=== PATIENT | male | born 1960 | race Caucasian/White ===

== ENCOUNTER 2021-02-07 04:21 | Day surgery (SDC) | payer OTHER ==
[2021-02-03 17:19] VITALS: BMI 30.4
[2021-02-07] MEDS ORDERED: LIDOCAINE HCL/PF 2% SDV 5ML VIAL ONE (10:27)
[2021-02-07] MEDS ORDERED: PROPOFOL 20 ML ONE (10:27)
[2021-02-07] MEDS ORDERED: KETOROLAC TROMETHAMINE 30 MG/1 ML VIAL ONE (10:27)
[2021-02-07 15:28] VITALS: TEMP 97
[2021-02-07 15:40] VITALS: BP 120/70; PULSE 88
== END 2021-02-07 12:00 | disposition home or self-care (01) ==
LOC: JASU-SURG 04:21
PROVIDERS: ATTEND Urology
PROC: 0TF3XZZ Fragmentation in Right Kidney Pelvis, External Approach (ICD-10-PCS; principal; 2021-02-07 09:00)
DX: N20.0 Calculus of kidney (principal); I10 Essential (primary) hypertension; E11.9 Type 2 diabetes mellitus without complications; Z79.4 Long term (current) use of insulin; Z79.84 Long term (current) use of oral hypoglycemic drugs
CPT/HCPCS: 82962

== ENCOUNTER 2021-02-21 04:31 | Day surgery (SDC) | payer OTHER ==
[2021-02-17 13:21] VITALS: BMI 30.4
[2021-02-21] MEDS ORDERED: PROPOFOL 20 ML ONE ×2 (11:23)
[2021-02-21 15:32] VITALS: BP 146/81; PULSE 98; TEMP 98
== END 2021-02-21 14:00 | disposition home or self-care (01) ==
LOC: JASU-SURG 04:31
PROVIDERS: ATTEND Urology
PROC: 0TF4XZZ Fragmentation in Left Kidney Pelvis, External Approach (ICD-10-PCS; principal; 2021-02-21 11:30)
DX: N20.0 Calculus of kidney (principal)
CPT/HCPCS: 82962